=== PATIENT | male | born 1995 | race Caucasian/White ===

== ENCOUNTER 2018-02-13 14:43 | Emergency (ER) | payer OTHER ==
--- NOTE | 2018-02-13 15:34 | ED ---
Lower Extremity - HPI Summary HPI Summary: Patient is a 22-year-old male with no significant PMH presenting to the ED with 1 week worsening pain to the medial side of the foot just inferior to the medial malleolus. Denies any known injury or trauma. He states the area just continues to worsen over the past week. Worse with ambulation, better with rest. At rest he endorses 0/10 pain, however with ambulation he endorses an 8/ 10 pain, worse with flexion. There is no erythema or ecchymosis to the area. No obvious deformity. - History of Current Complaint Chief Complaint: EDExtremityLower Stated Complaint: RT FOOT PAIN Hx Obtained From: Patient Onset of Pain: Days Onset/Duration: Days Severity Initially: Moderate Severity Currently: Moderate Pain Intensity: 2 Pain Scale Used: 0-10 Numeric Timing: Constant Location: Is Discrete @ - right inner foot pain Character Of Pain: Aching, Throbbing Associated Signs And Symptoms: Negative: Swelling, Redness, Bruising, Weakness Aggravating Factor(s): Standing, Ambulation Alleviating Factor(s): Rest Able to Bear Weight: Yes - Risk Factors Gout Risk Factors: Negative DVT Risk Factors: Negative Septic Arthritis Risk Factor: Negative - Allergies/Home Medications Allergies/Adverse Reactions: Allergies Allergy/AdvReac Type Severity Reaction Status Date / Time cefprozil [From Cefzil] Allergy Hives Verified 02/13/18 14:57 Home Medications: Home Medications NK [No Home Medications Reported] 02/13/18 [History Confirmed 02/13/18] PMH/Surg Hx/FS Hx/Imm Hx Previously Healthy: Yes - Immunization History Hx Pertussis Vaccination: No Immunizations Up to Date: Unable to Obtain/Confirm Infectious Disease History: No Infectious Disease History: Denies: Traveled Outside the [place] in Last 30 Days - Social History Occupation: Employed Part-time Lives: With Family Alcohol Use: None Hx Substance Use: No Substance Use Type: Reports: None Hx Tobacco Use: No Smoking Status (MU): Never Smoked Tobacco Review of Systems Constitutional: Negative Negative: Fever, Chills, Fatigue Negative: Palpitations, Chest Pain Negative: Shortness Of Breath, Cough Genitourinary: Negative Positive: no symptoms reported, see HPI Positive: Myalgia - right inner foot pain Skin: Negative Neurological: Negative All Other Systems Reviewed And Are Negative: Yes Physical Exam Triage Information Reviewed: Yes Vital Signs On Initial Exam: Initial Vitals Temp Pulse Resp BP Pulse Ox 98 F 76 18 126/82 98 02/13/18 14:53 02/13/18 14:53 02/13/18 14:53 02/13/18 14:53 02/13/18 14:53 Vital Signs Reviewed: Yes Appearance: Positive: Well-Appearing, Well-Nourished Skin: Positive: Warm, Skin Color Reflects Adequate Perfusion Head/Face: Positive: Normal Head/Face Inspection Eyes: Positive: EOMI, THOMAS, Conjunctiva Clear Neck: Positive: No Lymphadenopathy Respiratory/Lung Sounds: Positive: Clear to Auscultation, Breath Sounds Present Cardiovascular: Positive: RRR, Pulses are Symmetrical in both Upper and Lower Extremities Musculoskeletal: Positive: Pain @ - right inner foot pain Neurological: Positive: Sensory/Motor Intact, Alert, Oriented to Person Place, Time, Speech Normal Psychiatric: Positive: Normal, Affect/Mood Appropriate Diagnostics - Vital Signs Vital Signs Temp Pulse Resp BP Pulse Ox 02/13/18 14:53 98 F 76 18 126/82 98 - Laboratory Lab Statement: Any lab studies that have been ordered have been reviewed, and results considered in the medical decision making process. Lower Extremity Course/Dx - Course Course Of Treatment: Drink was treatment, the patient is evaluated for medial right foot pain without radiation. It appears to be just inferior to the medial malleolus involving the flexor retinaculum with likely underlying tendinitis of the flexor muscles. Pulses +2 intact bilaterally and no swelling is noted. X-ray obtainedwhich shows no acute findings. Encouraged ibuprofen, ice, elevation and trying to stay off the foot as much as possible over the next few days. - Diagnoses Differential Diagnosis/HQI/PQRI: Positive: Sprain, Strain, Tendonitis Provider Diagnoses: Tendinitis Discharge - Sign-Out/Discharge Documenting (check all that apply): Patient Departure - Discharge Plan Condition: Stable Disposition: HOME Patient Education Materials: Tendinitis (ED) Referrals: No Primary Care Phys,NOPCP [Primary Care Provider] - Additional Instructions: Ibuprofen 600mg three times daily Ice to the area Elevate when possible Try to stay off the foot as much as possible - Billing Disposition and Condition Condition: STABLE Disposition: Home
--- NOTE | 2018-02-13 17:14 | RAD ---
INDICATION: 1 week of atraumatic right foot pain COMPARISON: None. TECHNIQUE: 3 views of the right foot were obtained. FINDINGS: The adequately corticated bones are properly aligned. Joint spaces appear maintained. No fracture, dislocation or focal bony abnormality is seen. IMPRESSION: Normal radiograph of the right foot. If the patient's symptoms persist, follow-up imaging is recommended.
[2018-02-13 17:47] VITALS: BP 115/70
== END 2018-02-13 17:30 | disposition home or self-care (01) ==
LOC: ED 14:43
DX: M65.871 Other synovitis and tenosynovitis, right ankle and foot (principal); Z88.1 Allergy status to other antibiotic agents
CPT/HCPCS: 99282